=== PATIENT | female | born 1940 | race Caucasian/White ===

== ENCOUNTER → 2017-07-24 | Emergency (ER) | payer OTHER ==
[~2017-07-24] VITALS: Ht 167.6 cm; Wt 68.0 kg
[~2017-07-24] MED LIST: ARICEPT5 MG; ASA81 MG; COZAAR50 MG; LOPERAMIDE2 M1; PERCOCET 5/3251 TAB; RESTORIL30 MG; SYMBICORT 16010.2 GM; ULTRAM50 MG; ZOCOR20 MG
== END | disposition home or self-care (01) ==
LOC: ER 08:21
DX: R04.2 Hemoptysis (principal)

== ENCOUNTER 2018-02-21 17:42 | Emergency (ER) | payer OTHER ==
[~2018-02-21] VITALS: Ht 157.5 cm; Wt 68.0 kg
[2018-02-21] MEDS ORDERED: AMITRIPTYLINE H50 MG (17:52)
[2018-02-21] MEDS ORDERED: ARICEPT10 MG (17:53)
[2018-02-21] MEDS ORDERED: RESTORIL30 M1 (17:53)
[2018-02-21] MEDS ORDERED: SIMVASTATIN40 MG (17:53)
[2018-02-21] MEDS ORDERED: LOPERAMIDE2 M1 (17:53)
[2018-02-21] MEDS ORDERED: IRO-PLEX LIQUI120 ML (17:54)
[2018-02-21] MEDS ORDERED: BTREX (17:54)
[2018-02-21] MEDS ORDERED: ASA81 MG (17:55)
[2018-02-21] MEDS ORDERED: BONIVA150 MG (17:55)
[2018-02-21] MEDS ORDERED: COZAAR25 MG (17:55)
== END 2018-02-21 23:23 | disposition home or self-care (01) ==
LOC: ER 17:42
DX: K62.5 Hemorrhage of anus and rectum (principal); K64.8 Other hemorrhoids; D50.0 Iron deficiency anemia secondary to blood loss (chronic)

== ENCOUNTER 2018-06-04 07:15 | Outpatient (CLI) | payer OTHER ==
[~2018-06-04 07:15] MED LIST changes: +AMITRIPTYLINE H50 MG; +ARICEPT10 MG; +BONIVA150 MG; +BTREX; +COZAAR25 MG; +IRO-PLEX LIQUI120 ML; +RESTORIL30 M1; +SIMVASTATIN40 MG
== END 2018-06-04 07:22 | disposition home or self-care (01) ==
LOC: TOM 07:15
DX: C34.32 Malignant neoplasm of lower lobe, left bronchus or lung (principal); C79.51 Secondary malignant neoplasm of bone; D63.0 Anemia in neoplastic disease; C53.8 Malignant neoplasm of overlapping sites of cervix uteri; K55.21 Angiodysplasia of colon with hemorrhage; G30.8 Other Alzheimer's disease
CPT/HCPCS: 74178; Q9965

== ENCOUNTER 2018-06-24 09:18 | Outpatient (CLI) | payer OTHER | END 2018-06-24 09:51 | disposition home or self-care (01) | LOC: RX STUDY 09:18 | DX: N82.4 Other female intestinal-genital tract fistulae (principal) ==

== ENCOUNTER → 2018-10-20 | Outpatient (CLI) | payer OTHER | END | disposition home or self-care (01) | LOC: MAMO-SONO 14:20 | DX: Z12.31 Encounter for screening mammogram for malignant neoplasm of breast (principal); Z87.898 Personal history of other specified conditions; C34.32 Malignant neoplasm of lower lobe, left bronchus or lung; C79.51 Secondary malignant neoplasm of bone; D63.0 Anemia in neoplastic disease; C53.9 Malignant neoplasm of cervix uteri, unspecified; K55.21 Angiodysplasia of colon with hemorrhage; G30.8 Other Alzheimer's disease; N63.10 Unspecified lump in the right breast, unspecified quadrant; N63.20 Unspecified lump in the left breast, unspecified quadrant ==

== ENCOUNTER 2019-11-22 12:31 | Inpatient (IN) | payer OTHER ==
[~2019-11-22] VITALS: Ht 170.2 cm; Wt 74.8 kg
== END 2019-12-06 22:16 | disposition other institution (70) | DRG 180 ==
LOC: ER 12:31 → MEDI 17:22 → SEC-K 17:22 → MEDI 11-23 00:58
PROVIDERS: ADMIT Internal Medicine; ATTEND Internal Medicine
PROC: 4A033R1 Measurement of Arterial Saturation, Peripheral, Percutaneous Approach (ICD-10-PCS; 2019-11-22)
PROC: 0T9B70Z Drainage of Bladder with Drainage Device, Via Natural or Artificial Opening (ICD-10-PCS; 2019-11-22)
PROC: BB24ZZZ Computerized Tomography (CT Scan) of Bilateral Lungs (ICD-10-PCS; principal; 2019-11-23)
PROC: 3E0F7GC Introduction of Other Therapeutic Substance into Respiratory Tract, Via Natural or Artificial Opening (ICD-10-PCS; 2019-11-23)
PROC: 8E0ZXY6 Isolation (ICD-10-PCS; 2019-11-23)
PROC: B24BZZZ Ultrasonography of Heart with Aorta (ICD-10-PCS; 2019-11-25)
PROC: 02HV33Z Insertion of Infusion Device into Superior Vena Cava, Percutaneous Approach (ICD-10-PCS; 2019-11-28)
PROC: 30243N1 Transfusion of Nonautologous Red Blood Cells into Central Vein, Percutaneous Approach (ICD-10-PCS; 2019-11-28)
DX: C34.82 Malignant neoplasm of overlapping sites of left bronchus and lung (principal); A41.1 Sepsis due to other specified staphylococcus; J44.1 Chronic obstructive pulmonary disease with (acute) exacerbation; C79.2 Secondary malignant neoplasm of skin; J98.11 Atelectasis; J90 Pleural effusion, not elsewhere classified; D53.0 Protein deficiency anemia; D63.8 Anemia in other chronic diseases classified elsewhere; E86.0 Dehydration; E87.8 Other disorders of electrolyte and fluid balance, not elsewhere classified; R50.9 Fever, unspecified; I08.0 Rheumatic disorders of both mitral and aortic valves; G30.0 Alzheimer's disease with early onset; I10 Essential (primary) hypertension; N39.8 Other specified disorders of urinary system; F02.80 Dementia in other diseases classified elsewhere, unspecified severity, without behavioral disturbance, psychotic disturbance, mood disturbance, and anxiety; Z45.2 Encounter for adjustment and management of vascular access device; Z03.818 Encounter for observation for suspected exposure to other biological agents ruled out